=== PATIENT | female | born 1990 | race Hispanic/Latino ===

== ENCOUNTER 2017-08-15 08:07 | Emergency (ER) | payer MEDICAID ==
[2017-08-15] MEDS ORDERED: CLEOCIN IM ONE (08:54)
[2017-08-15] MEDS ORDERED: NORCO 5/325 PO ONE (08:55)
--- NOTE | 2017-08-15 08:58 | Emergency Department Report ---
ED ENT HPI - General Chief complaint: Dental/Oral Stated complaint: FACIAL SWELLING Time Seen by Provider: 08/15/17 08:53 Source: patient Mode of arrival: Ambulatory Limitations: No Limitations - Related Data Previous Rx's Medication Instructions Recorded Last Taken Type Clindamycin [Clindamycin CAP] 300 mg PO Q8H #30 cap 08/15/17 Unknown Rx Naproxen [Naprosyn] 500 mg PO BID PRN #20 tablet 08/15/17 Unknown Rx Allergies Allergy/AdvReac Type Severity Reaction Status Date / Time cephalexin monohydrate Allergy Angioedema Verified 06/22/14 20:57 [From Keflex] codeine Allergy Itching Verified 02/02/14 16:35 heparin Allergy Itching Verified 08/07/14 15:45 latex Allergy Hives Verified 08/07/14 15:45 Penicillins Allergy Rash Verified 08/07/14 15:45 Sulfa (Sulfonamide Allergy Vomiting Verified 09/17/13 17:36 Antibiotics) ED Dental HPI - General Chief complaint: Dental/Oral Stated complaint: FACIAL SWELLING Time Seen by Provider: 08/15/17 08:53 Source: patient Mode of arrival: Ambulatory Limitations: No Limitations - History of Present Illness MD complaint: tooth pain -: Gradual Severity: moderate Quality: stabbing, crushing Consistency: constant Improves with: none Worsens with: chewing Context- Dental: history of dental caries - Related Data Previous Rx's Medication Instructions Recorded Last Taken Type Clindamycin [Clindamycin CAP] 300 mg PO Q8H #30 cap 08/15/17 Unknown Rx Naproxen [Naprosyn] 500 mg PO BID PRN #20 tablet 08/15/17 Unknown Rx Allergies Allergy/AdvReac Type Severity Reaction Status Date / Time cephalexin monohydrate Allergy Angioedema Verified 06/22/14 20:57 [From Keflex] codeine Allergy Itching Verified 02/02/14 16:35 heparin Allergy Itching Verified 08/07/14 15:45 latex Allergy Hives Verified 08/07/14 15:45 Penicillins Allergy Rash Verified 08/07/14 15:45 Sulfa (Sulfonamide Allergy Vomiting Verified 09/17/13 17:36 Antibiotics) ED Review of Systems ROS: Stated complaint: FACIAL SWELLING Other details as noted in HPI Comment: All other systems reviewed and negative Constitutional: no symptoms reported ENT: dental pain (l lower dental pain rad to ear) ED Past Medical Hx - Past Medical History Previous Medical History?: Yes Hx Hypertension: No Hx Congestive Heart Failure: No Hx Diabetes: No Hx Deep Vein Thrombosis: No Hx Renal Disease: Yes (kidney stones 2014) Hx Sickle Cell Disease: No Hx Seizures: No Hx Asthma: Yes (as a child) Hx COPD: No Hx HIV: No - Surgical History Past Surgical History?: Yes Hx Cholecystectomy: Yes Hx Appendectomy: Yes Additional Surgical History: . ovarian cyst removed. L.ankle surgery - Social History Smoking Status: Never Smoker - Medications Home Medications: Home Medications Medication Instructions Recorded Confirmed Last Taken Type Clindamycin [Clindamycin CAP] 300 mg PO Q8H #30 cap 08/15/17 Unknown Rx Naproxen [Naprosyn] 500 mg PO BID PRN #20 tablet 08/15/17 Unknown Rx ED Physical Exam - General Limitations: No Limitations General appearance: alert - Head Head exam: Present: atraumatic - Eye Eye exam: Present: normal appearance - ENT ENT exam: Present: normal exam, mucous membranes moist - Expanded ENT Exam Expanded Mouth exam: Absent: drooling, trismus, muffled voice, tongue normal, tongue elevation Teeth exam: Present: dental caries Throat exam: Positive: normal inspection. Negative: tonsillar erythema, tonsillomegaly, tonsillar exudate, R peritonsillar mass, L peritonsillar mass - Neck Neck exam: Present: normal inspection, full ROM. Absent: tenderness, meningismus, lymphadenopathy, thyromegaly - Respiratory Respiratory exam: Present: normal lung sounds bilaterally - Cardiovascular Cardiovascular Exam: Present: regular rate, normal rhythm (90 on exam) - GI/Abdominal GI/Abdominal exam: Present: soft - Extremities Exam Extremities exam: Present: normal inspection - Back Exam Back exam: Present: normal inspection - Neurological Exam Neurological exam: Present: alert, oriented X3 - Psychiatric Psychiatric exam: Present: normal affect - Skin Skin exam: Present: warm, dry, intact ED Course Vital Signs 08/15/17 08/15/17 08:25 10:38 Temperature 98.9 F 97.9 F Pulse Rate 105 H 67 Respiratory 16 16 Rate Blood Pressure 126/86 Blood Pressure 143/96 [Left] O2 Sat by Pulse 100 96 Oximetry ED Medical Decision Making - Medical Decision Making see note - Differential Diagnosis ro abscess Critical care attestation.: If time is entered above; I have spent that time in minutes in the direct care of this critically ill patient, excluding procedure time. ED Disposition Clinical Impression: Dental caries Disposition: DC- TO HOME OR SELFCARE Is pt being admited?: No Does the pt Need Aspirin: No Condition: Stable Instructions: Dental Caries (ED) Additional Instructions: continue home ultram for severe pain meds as ordered follow up dmd prasad good oral care Prescriptions: Clindamycin [Clindamycin CAP] 300 mg PO Q8H #30 cap Naproxen [Naprosyn] 500 mg PO BID PRN #20 tablet PRN Reason: Pain Referrals: [facility] [Outside] - 3-5 Days Time of Disposition: 08:54
[2017-08-15 10:40] VITALS: BP 143/96
== END 2017-08-15 10:40 | disposition home or self-care (01) ==
LOC: ED 08:07
DX: K02.9 Dental caries, unspecified (principal); J45.909 Unspecified asthma, uncomplicated; Z91.040 Latex allergy status; Z88.0 Allergy status to penicillin; Z88.5 Allergy status to narcotic agent; Z88.2 Allergy status to sulfonamides
CPT/HCPCS: 96372

== ENCOUNTER 2017-09-21 19:20 | Emergency (ER) | payer MEDICAID ==
[2017-09-21 20:36] VITALS: BP 127/74
== END 2017-09-22 03:42 | disposition left against medical advice (07) ==
LOC: ED 19:20
DX: J02.9 Acute pharyngitis, unspecified (principal); Z53.21 Procedure and treatment not carried out due to patient leaving prior to being seen by health care provider

== ENCOUNTER 2019-04-06 12:41 | Emergency (ER) | payer BC, MEDICAID ==
--- NOTE | 2019-04-06 12:56 | Event Note ---
ED Screening Note ED Screening Note: generalized body aches fever last night which she states was 103 cough bilateral ear pain x 1 week states she has taken OTC cold relief medications without relief +smoker LNMP: last week tubal ligation This initial assessment/diagnostic orders/clinical plan/treatment(s) is/are subject to change based on patients health status, clinical progression and re- assessment by fellow clinical providers in the ED. Further treatment and workup at subsequent clinical providers discretion. Patient/guardian urged not to elope from the ED as their condition may be serious if not clinically assessed and managed. Initial orders include: CXR
--- NOTE | 2019-04-06 13:46 | XRay Report ---
CHEST 2 VIEWS INDICATION: cough. Fever. COMPARISON: None FINDINGS: Support devices: None. Heart: Within normal limits. Lungs/pleura: No acute air space or interstitial disease. No pneumothorax. Additional findings: None. IMPRESSION: No acute findings. Signer Name: Luis Angel Ritchie Jr, MD Signed: 04/06/2019 1:41 PM Workstation Name: [id number]
[2019-04-06] MEDS ORDERED: DELTASONE PO ONE (14:19)
[2019-04-06] MEDS ORDERED: NORCO 5/325 PO ONE (14:20)
--- NOTE | 2019-04-06 14:48 | Emergency Department Report ---
Minor Respiratory - HPI Chief Complaint: Upper Respiratory Infection Stated Complaint: COLD SX Time Seen by Provider: 04/06/19 12:55 Duration: 2 Days (patient) Pain Location: Throat ( ER) Severity: moderate (he E) Minor Respiratory: Yes Sore Throat, Yes Able to Tolerate Fluids, Yes Ear Pain, Yes Cough, Yes Fever, No Rhinorrhea, No Sick Contacts, No Hemoptysis, No Chest Pain, No Shortness of Breath ED Review of Systems ROS: Stated complaint: COLD SX Other details as noted in HPI Comment: All other systems reviewed and negative ED Past Medical Hx - Past Medical History Hx Hypertension: No Hx Congestive Heart Failure: No Hx Diabetes: No Hx Deep Vein Thrombosis: No Hx Renal Disease: Yes (kidney stones 2014) Hx Sickle Cell Disease: No Hx Seizures: No Hx Asthma: Yes (as a child) Hx COPD: No Hx HIV: No Additional medical history: ANXIETY - Surgical History Hx Cholecystectomy: Yes Hx Appendectomy: Yes (2010) Additional Surgical History: . ovarian cyst removed. L.ankle surgery - Social History Smoking Status: Current Every Day Smoker Substance Use Type: None - Medications Home Medications: Home Medications Medication Instructions Recorded Confirmed Last Taken Type Clindamycin [Clindamycin CAP] 300 mg PO Q8H #30 cap 08/15/17 Unknown Rx Azithromycin [Zithromax TAB] 500 mg PO QDAY #7 tablet 04/06/19 Unknown Rx Naproxen [Naprosyn TAB] 500 mg PO BID PRN #20 tablet 04/06/19 Unknown Rx Nystas/Diphen/Xyl Visc/Mylanta 15 ml MM Q6H PRN #120 ml 04/06/19 Unknown Rx [Magic Mouthwash] Minor Respiratory Exam - Exam General: Vital signs noted. No distress. Alert and acting appropriately. HEENT: Yes Moist Mucous Membranes, No Pharyngeal Erythema, No Pharyngeal Exudates, No Rhinorrhea, No Conjuctival Injection, No Frontal Tenderness, No Maxillary Tenderness Ear: Neither TM Bulge, Neither TM Erythema, Neither EAC Pain, Neither EAC Di scharge Neck: Yes Supple, No Adenopathy Lungs: Yes Good Air Exchange, No Wheezes, No Ronchi, No Stridor, No Cough, No Labored Respirations, No Retractions, No Use of Accessory Muscles, No Other Abnormal Lung Sounds Heart: Yes Regular, No Murmur Abdomen: Yes Normal Bowel Sounds, No Tenderness, No Peritoneal Signs Skin: No Rash, No Edema Neurologic: Alert and oriented, no deficits. Musculoskeletal: Unremarkable. ED Course Vital Signs 04/06/19 12:54 Temperature 99.8 F H Pulse Rate 107 H Respiratory 18 Rate O2 Sat by Pulse 97 Oximetry ED Medical Decision Making - Radiology Data Radiology results: report reviewed, image reviewed INDICATION: cough. Fever. COMPARISON: None FINDINGS: Support devices: None. Heart: Within normal limits. Lungs/pleura: No acute air space or interstitial disease. No pneumothorax. Additional findings: None. IMPRESSION: No acute findings. Signer Name: Luis Angel Gilmore Jr, MD Signed: 04/06/2019 1:41 PM Workstation Name: [id number] Transcribed By: TTR Dictated By: LUIS ANGEL GILMORE JR, MD Electronically Authenticated By: LUIS ANGEL GILMORE JR, MD Signed Date/Time: 04/06/19 1341 - Medical Decision Making 28-year-old female presents with acute bacterial tonsillitis. Patient received 10 medication in the ED. Due to patient's allergy to penicillin shot this patient will be prescribed azithromycin. Medicines are normal patient is no acute distress Discussed to follow up with primary care physician. Days. Vital signs are normal patient is in no acute or respiratory distress. Critical care attestation.: If time is entered above; I have spent that time in minutes in the direct care of this critically ill patient, excluding procedure time. ED Disposition Clinical Impression: Acute bacterial tonsillitis Disposition: DC-01 TO HOME OR SELFCARE Is pt being admited?: No Does the pt Need Aspirin: No Condition: Stable Instructions: Tonsillitis (ED), Strep Throat (ED), Pharyngitis (ED) Additional Instructions: Make sure to follow up with the primary care physician as discussed. Take all your medications as you've been prescribed. If you have any worsening symptoms or develop new symptoms please return to ED immediately. Prescriptions: Nystas/Diphen/Xyl Visc/Mylanta [Magic Mouthwash] 15 ml MM Q6H PRN #120 ml PRN Reason: Sore Throat Naproxen [Naprosyn TAB] 500 mg PO BID PRN #20 tablet PRN Reason: Pain Azithromycin [Zithromax TAB] 500 mg PO QDAY #7 tablet Referrals: [facility] [Outside] - 3-5 Days [facility] [Outside] - 3-5 Days Forms: Accompanied Note, Work/School Release Form(ED) Time of Disposition: 15:08
== END 2019-04-06 15:49 | disposition home or self-care (01) ==
LOC: ED 12:41
DX: J03.80 Acute tonsillitis due to other specified organisms (principal); B96.89 Other specified bacterial agents as the cause of diseases classified elsewhere; J45.909 Unspecified asthma, uncomplicated; F17.200 Nicotine dependence, unspecified, uncomplicated; Z90.49 Acquired absence of other specified parts of digestive tract
CPT/HCPCS: 71046; 99283; J7512

== ENCOUNTER 2019-07-20 02:03 | Emergency (ER) | payer BC ==
[2019-07-20 02:11] VITALS: BP 119/77
--- NOTE | 2019-07-20 03:24 | Emergency Department Report ---
ED General Adult HPI - General Chief complaint: Extremity Injury, Upper Stated complaint: LT HAND INJURY Time Seen by Provider: 07/20/19 03:11 Source: patient Mode of arrival: Ambulatory Limitations: No Limitations - History of Present Illness Initial comments: 29yo WF states that she hurt her L hand when the window fell on her hand as she was trying to open it at a house x 1 day. She states the pain is a 4 but it also has numbness present at her L 3rd finger. -: days(s) Location: upper extremity Radiation: non-radiation Severity scale (0 -10): 4 Quality: aching Consistency: constant Improves with: none Worsens with: movement Associated Symptoms: denies other symptoms Treatments Prior to Arrival: none - Related Data Previous Rx's Medication Instructions Recorded Last Taken Type Clindamycin [Clindamycin CAP] 300 mg PO Q8H #30 cap 08/15/17 Unknown Rx Azithromycin [Zithromax TAB] 500 mg PO QDAY #7 tablet 04/06/19 Unknown Rx Naproxen [Naprosyn TAB] 500 mg PO BID PRN #20 tablet 04/06/19 Unknown Rx Nystas/Diphen/Xyl Visc/Mylanta 15 ml MM Q6H PRN #120 ml 04/06/19 Unknown Rx [Magic Mouthwash] Allergies Allergy/AdvReac Type Severity Reaction Status Date / Time cephalexin monohydrate Allergy Angioedema Verified 06/22/14 20:57 [From Keflex] codeine Allergy Itching Verified 02/02/14 16:35 heparin Allergy Itching Verified 08/07/14 15:45 latex Allergy Hives Verified 08/07/14 15:45 Penicillins Allergy Rash Verified 08/07/14 15:45 pseudoephedrine Allergy Shortness Verified 04/06/19 12:43 [From Sudafed] of Breath Sulfa (Sulfonamide Allergy Vomiting Verified 09/17/13 17:36 Antibiotics) ED Review of Systems ROS: Stated complaint: LT HAND INJURY Other details as noted in HPI Comment: All other systems reviewed and negative Musculoskeletal: as per HPI Neurological: as per HPI ED Past Medical Hx - Past Medical History Previous Medical History?: Yes Hx Hypertension: No Hx Congestive Heart Failure: No Hx Diabetes: No Hx Deep Vein Thrombosis: No Hx Renal Disease: Yes (kidney stones 2014) Hx Sickle Cell Disease: No Hx Seizures: No Hx Asthma: Yes (as a child) Hx COPD: No Hx HIV: No Additional medical history: ANXIETY - Surgical History Past Surgical History?: Yes Hx Cholecystectomy: Yes Hx Appendectomy: Yes (2010) Additional Surgical History: . ovarian cyst removed. L.ankle surgery - Social History Smoking Status: Current Every Day Smoker Substance Use Type: None - Medications Home Medications: Home Medications Medication Instructions Recorded Confirmed Last Taken Type Clindamycin [Clindamycin CAP] 300 mg PO Q8H #30 cap 08/15/17 Unknown Rx Azithromycin [Zithromax TAB] 500 mg PO QDAY #7 tablet 04/06/19 Unknown Rx Naproxen [Naprosyn TAB] 500 mg PO BID PRN #20 tablet 04/06/19 Unknown Rx Nystas/Diphen/Xyl Visc/Mylanta 15 ml MM Q6H PRN #120 ml 04/06/19 Unknown Rx [Magic Mouthwash] ED Physical Exam - General Limitations: No Limitations General appearance: alert, in no apparent distress - Head Head exam: Present: atraumatic, normocephalic - Eye Eye exam: Present: normal appearance, PERRL - ENT ENT exam: Present: normal exam, normal orophraynx. Absent: mucous membranes dry - Neck Neck exam: Present: normal inspection, full ROM. Absent: tenderness - Respiratory Respiratory exam: Present: normal lung sounds bilaterally. Absent: respiratory distress, wheezes - Cardiovascular Cardiovascular Exam: Present: regular rate, normal rhythm, normal heart sounds - GI/Abdominal GI/Abdominal exam: Present: soft. Absent: distended, tenderness - Rectal Rectal exam: Present: deferred - Extremities Exam Extremities exam: Present: tenderness (diffusely present in L 3rd finger), normal capillary refill, other (L hand tenderness; decreased sensation at the L 3rd finger, active ROM limited of L 3rd finger, passive ROM WNL ) - Back Exam Back exam: Present: normal inspection, full ROM. Absent: tenderness - Neurological Exam Neurological exam: Present: alert, altered, oriented X3 - Expanded Neurological Exam Expanded Sensory exam: Upper Extremity Light Touch: Abnormal Left (L 3rd finger) - Psychiatric Psychiatric exam: Present: normal affect, normal mood, depressed - Skin Skin exam: Present: warm, dry, intact ED Course Vital Signs 07/20/19 02:08 Temperature 98.2 F Pulse Rate 107 H Respiratory 16 Rate Blood Pressure 119/77 Blood Pressure 119/77 [Right] O2 Sat by Pulse 95 Oximetry ED Medical Decision Making - Radiology Data [facility] [address] [place] [address] XRay Report Signed Patient: MILES MENDES MR#: [id number] : 1990 Acct:[id number] Age/Sex: 29 / F ADM Date: 07/20/19 Loc: ED Attending Dr: Ordering Physician: LEE CHANDRA PA-C Date of Service: 07/20/19 Procedure(s): XR hand 3+V LT Accession Number(s): [id number] cc: LEE CHANDRA PA-C Fluoro Time In Minutes: Left hand 3 views INDICATION: Left hand pain following injury IMPRESSION: No fracture or subluxation of the left hand. Signer Name: Gomez Rm MD Signed: 07/20/2019 3:48 AM Workstation Name: [id number] Transcribed By: BC Dictated By: Gomez Rm MD Electronically Authenticated By: Gomez Rm MD Signed Date/Time: 07/20/19347 DD/ 6 TD/TT: - Medical Decision Making 29yo WF states that she hurt her L hand when the window fell on her hand as she was trying to open it at a house x 1 day. She states the pain is a 4 but it also has numbness present at her L 3rd finger. X-rays were obtained and revealed no subluxation or fracture. Pt was instructed to RICE, take NSAIDs as needed and f/u with PCP; see ER as needed. She verbalized understanding and agreed with the plan of care. Critical care attestation.: If time is entered above; I have spent that time in minutes in the direct care of this critically ill patient, excluding procedure time. ED Disposition Clinical Impression: Hand injury Disposition: DC-01 TO HOME OR SELFCARE Is pt being admited?: No Does the pt Need Aspirin: No Condition: Stable Additional Instructions: Pt was instructed to RICE, take NSAIDs as needed and f/u with PCP; see ER as needed. She verbalized understanding and agreed with the plan of care. Referrals: PRIMARY CARE, [Primary Care Provider] - 3-5 Days [facility] [Outside] - 3-5 Days Time of Disposition: 04:00
--- NOTE | 2019-07-20 03:53 | XRay Report ---
Left hand 3 views INDICATION: Left hand pain following injury IMPRESSION: No fracture or subluxation of the left hand. Signer Name: Gomez Rm MD Signed: 07/20/2019 3:48 AM Workstation Name: [id number]
[2019-07-20 04:24] LABS: HCG Qualitative,Urine Negative (Negative)
[2019-07-20 04:30] LABS: Bilirubin,Urine NEG (Negative); Blood,Urine NEG (Negative); Color,Urine Colorless (Yellow); Protein,Urine <15 mg/dL mg/dL (Negative); RBC,Urine < 1.0 /HPF (0.0-6.0); Urobilinogen,Urine < 2.0 mg/dL (<2.0); WBC,Urine < 1.0 /HPF (0.0-6.0)
== END 2019-07-20 04:06 | disposition home or self-care (01) ==
LOC: ED 02:03
DX: S69.82XA Other specified injuries of left wrist, hand and finger(s), initial encounter (principal); Z88.0 Allergy status to penicillin; Z88.1 Allergy status to other antibiotic agents; Z88.4 Allergy status to anesthetic agent; Z91.041 Radiographic dye allergy status; X58.XXXA Exposure to other specified factors, initial encounter; Y93.89 Activity, other specified; Y92.89 Other specified places as the place of occurrence of the external cause; Y99.8 Other external cause status
CPT/HCPCS: 81001; 81025

== ENCOUNTER 2021-11-09 14:00 | Emergency (ER) | payer BC | END 2021-11-09 15:00 | disposition left against medical advice (07) | LOC: ED 14:00 | DX: R30.9 Painful micturition, unspecified (principal); Z53.21 Procedure and treatment not carried out due to patient leaving prior to being seen by health care provider ==